=== PATIENT | female | born 1975 | race American Indian/Alaskan Native ===

== ENCOUNTER 2017-01-16 06:22 | Day surgery (SDC) | payer BC ==
--- NOTE | 2017-01-16 07:30 | Anesthesia Day of Surgery ---
Anesthesia Day of Surgery - Day of Surgery Patient Examined: Yes Patient H&P Reviewed: Yes Patient is NPO: Yes
--- NOTE | 2017-01-16 07:31 | Anesthesia Consultation ---
Anesthesia Consult and Med Hx Date of service: 01/16/17 - Airway Anesthetic Teeth Evaluation: Good (GAP BWT FRONT TEETH) ROM Head & Neck: Adequate Mental/Hyoid Distance: Adequate Mallampati Class: Class I Intubation Access Assessment: Good - Pulmonary Exam CTA: Yes - Cardiac Exam Cardiac Exam: RRR - Pre-Operative Health Status ASA Pre-Surgery Classification: ASA2, ASA3 Proposed Anesthetic Plan: MAC - Pulmonary Hx Smoking: No Hx Asthma: No Hx Sleep Apnea: No - Cardiovascular System Hx Hypertension: Yes (TAKES LINSINOPRIL) Hx Heart Attack/AMI: No - Central Nervous System Hx Seizures: No CVA: No - Gastrointestinal Hx Ulcer: No (LAP BAND 2010) - Endocrine Hx Renal Disease: No Hx Liver Disease: No Hx Non-Insulin Dependent Diabetes: No - Hematic Hx Anemia: No Hx Sickle Cell Disease: No - Other Systems Hx Cancer: No Hx Obesity: Yes - Additional Comments Anesthesia Medical History Comments: NAC
[2017-01-16] MEDS ORDERED: DIPRIVAN 10 MG/ML IV ONE (07:55)
--- NOTE | 2017-01-16 09:21 | Discharge Summary ---
Providers - Providers Date of discharge: 01/16/17 Attending physician: PAUL SMITH Primary care physician: POWER SOLIZ Hospitalization Reason for admission: outpatient EGD Condition: Stable Procedures: EGD Disposition: - TO HOME OR SELFCARE Core Measure Documentation - Palliative Care Palliative Care/ Comfort Measures: Not Applicable - Core Measures Any of the following diagnoses?: none Exam - Physical Exam Narrative exam: unchanged since preop - Constitutional Vitals: Temp Pulse Resp BP Pulse Ox 98.2 F 74 16 118/79 99 01/16/17 07:37 01/16/17 07:37 01/16/17 07:37 01/16/17 07:37 01/16/17 07:37 Plan Activity: advance as tolerated Diet: low carbohydrate Follow up with: POWER SOLIZ MD [Primary Care Provider] - 7 Days
--- NOTE | 2017-01-16 09:24 | Operative Report ---
Operative Report Operative Report: OPERATIVE REPORT - EGD DATE 01/16/2017 SURGERY: Upper endoscopy. SURGEON: Otilio Marcano M.D. STRATEGY PLANNING CONSULTANT: Jermaine Garcia MD PRE OP DX: Dyspepsia POST OP DX: Lap band in place. Distal esophagitis TYPE OF ANESTHESIA: MAC. ESTIMATED BLOOD LOSS: None. COMPLICATIONS: None. SPECIMENS REMOVED: None. FINDINGS: 1. Distal esophagitis. 2. Otherwise, normal esophagus, stomach and first portion of duodenum. INDICATIONS:INDICATION FOR PROCEDURE: Patient is a 41-year-old female with a long history of morbid obesity with lap band placement. She is planned to have the lap band removed and is here for preoperative planning EGD due to dyspepsia. PROCEDURE DETAILS: After consent was reviewed, patient was taken back to the operating room where patient was placed in the left lateral decubitus position and a bite block was placed in the mouth. After a time-out was called, MAC anesthesia was initiated. I then passed the endoscope into her oropharynx, into her esophagus, visualized the entire esophagus, which was all within normal limits except for distal esophagitis. I then visualized the stomach and the first portion of the duodenum and there were no abnormalities I could clearly visualize. I then retroflexed the scope in the stomach and visualized the band imprint and I could not visualized the hiatus due to the presence of the lap band. I then desufflated the stomach and removed the endoscope. Patient tolerated procedure well and was transferred to recovery room in good and stable condition.
[2017-01-16 09:43] VITALS: BP 111/62
[2017-01-16] MEDS ORDERED: NACL 0.9% 1000 ML 1,000 ML IV SCH (10:00)
--- NOTE | 2017-01-16 10:02 | Post Anesthesia Evaluation ---
- Post Anesthesia Evaluation Patient Participated: Yes Airway Patent: Yes Stable Respiratory Function: Yes Nausea/Vomiting: No Temp > 96.8F: Yes Pain Manageable: Yes Adequeate Hydration: Yes Anesthesia Complications: No
== END 2017-01-16 06:23 | disposition home or self-care (01) ==
LOC: GIO 06:22
PROVIDERS: ATTEND Specialist
DX: K20.9 Esophagitis, unspecified (principal); I10 Essential (primary) hypertension; E66.01 Morbid (severe) obesity due to excess calories; Z68.38 Body mass index [BMI] 38.0-38.9, adult; Z79.899 Other long term (current) drug therapy; Z98.84 Bariatric surgery status; Z98.51 Tubal ligation status; Z98.890 Other specified postprocedural states; Z83.3 Family history of diabetes mellitus; Z82.49 Family history of ischemic heart disease and other diseases of the circulatory system; Z80.9 Family history of malignant neoplasm, unspecified
CPT/HCPCS: 43235; 81025; J2704

== ENCOUNTER 2017-01-17 10:15 | Outpatient (CLI) | payer BC | END 2017-01-17 10:16 | disposition home or self-care (01) | LOC: CARD 10:15 | PROVIDERS: ATTEND Family Medicine | DX: Z01.818 Encounter for other preprocedural examination (principal); I10 Essential (primary) hypertension | CPT/HCPCS: 93005; 93010 ==